=== PATIENT | female | born 1980 | race Caucasian/White ===

== ENCOUNTER 2017-05-01 16:56 | Emergency (ER) | payer BC ==
[2017-05-01] MEDS ORDERED: Amoxicillin 500 MG Cap PO ONE (19:13)
[2017-05-01] MEDS ORDERED: Acetaminophen/oxyCODONE 325-5 MG Tab PO ONE (19:14)
[2017-05-01 22:06] VITALS: BP 135/88
--- NOTE | 2017-05-04 13:52 | ER ---
DATE SEEN: 05/01/2017 HISTORY OF PRESENT ILLNESS: Oren had pain in her right jaw for several days. It got worse today. She has absent top 50% of the crown on the right, #29 tooth. She has moderate pain, and she is worried about this pus pocket below it. She denies fever, shortness of breath, chills, difficulty walking, lightheadedness, or tachycardia. No history of rheumatic fever, heart disease, or cardiac problems. Otherwise, she is healthy. No diabetes, heart disease, high blood pressure, or other serious illnesses. The patient has used prednisone for a foot plantar fasciitis, started 8 days ago. Dermoid cyst noted. She has wisdom teeth removed and has had tooth pain for the last 3 weeks. PAST MEDICAL HISTORY: She has depression, scoliosis, fibromyalgia, and acid reflux. ALLERGIES: Aspirin and peanut. MEDICATIONS: 1. Medroxyprogesterone - Depo-Provera 150 mg q.3 months. 2. Gabapentin 100 mg daily. 3. Amitriptyline 25 mg at bedtime. REVIEW OF SYSTEMS: Negative. PHYSICAL EXAMINATION: VITAL SIGNS: Blood pressure 135/88, heart rate 83, respirations 18, oxygen saturation 100%, and temperature is 98.1. HEENT: The patient has lost 50% of the crown of the tooth #29. There is an amount of epulis - pus collection of fluid below this right root. ASSESSMENT: Infected tooth with periapical abscess. PLAN: Treat with Amoxil 500 mg t.i.d., 30 tablets, and also Percocet prescription. The patient to follow up with dentist next week. At a certain point, it may have to be drained and incised to relieve this pain and pressure she experiences, but currently is not ready for incision and drainage. DIAGNOSIS: Dental periapical abscess, tooth #29. /[id number] MELISSA/BARBARA
== END 2017-05-01 19:35 | disposition home or self-care (01) ==
LOC: FB.ED 16:56
DX: K04.7 Periapical abscess without sinus (principal); Z88.6 Allergy status to analgesic agent; Z91.010 Allergy to peanuts
CPT/HCPCS: 99282; A9270; 99283

== ENCOUNTER 2019-08-31 06:31 | Day surgery (SDC) | payer BC ==
[2019-08-31] MEDS ORDERED: Lidocaine 2% 5 ML SDV IV ONE (06:32)
[2019-08-31] MEDS ORDERED: Midazolam 1 MG/ML 2 ML SDV IV ONE (06:32)
[2019-08-31] MEDS ORDERED: Propofol 200 MG/20 ML SDV IV ONE (06:32)
[2019-08-31] MEDS ORDERED: Lactated Ringers 1,000 ML IV SCH (06:45)
[2019-08-31] MEDS ORDERED: Sodium Chloride 0.9% 10 ML Syringe FLUSH PRN (06:45)
--- NOTE | 2019-08-31 08:18 | PCM.OPNOTE ---
- General Post-Op/Procedure Note Date of Surgery/Procedure: 08/31/19 Operative Procedure(s): egd with bx Findings: gastritis hiatal hernia irregular z line Pre Op Diagnosis: dysphagia Post-Op Diagnosis: gastritis. hiatal hernia. irregular z line Anesthesia Technique: MAC Primary Surgeon: Brian Wade Anesthesia Provider: Oma Rueda Pathology: stomach and esophagus Complications: None Condition: Good Free Text/Narrative:: see dictation
--- NOTE | 2019-08-31 08:33 | PREOP ---
ADMISSION DATE: 08/31/2019 CHIEF COMPLAINT: Dysphagia. HISTORY OF PRESENT ILLNESS: This is a 39-year-old white female who has a known history of hiatal hernia as well as manometry proven motility issues. She has had some trouble with swallowing, basically complains that things feel like they get stuck in her esophagus. She has undergone an esophagram. She does have a history of severe reflux disease and has been offered and accepted an esophagogastroduodenoscopy. MEDICATIONS: 1. Lexapro 20 mg daily. 2. Neurontin 100 mg 2 times a day. 3. Depo-Provera 150 mg intramuscularly every 3 months. 4. Elavil 25 mg 2 tablets at bedtime. 5. Prilosec 20 mg tablets every day. ALLERGIES: She has an allergy to aspirin. PAST MEDICAL HISTORY: Significant for history of drug dependence, insomnia, major depressive disorder, myalgia and myosis, and post-traumatic stress disorder. PAST SURGICAL HISTORY: Significant for esophageal manometry in 2013. REVIEW OF SYSTEMS: CONSTITUTIONAL: Negative. HEENT: Positive for trouble swallowing. RESPIRATORY: Negative. CARDIOVASCULAR: Negative. GI: As above. ALLERGIC: Denies any immune, environmental, or food allergies. NEUROLOGIC: She has had no neurologic issues. PHYSICAL EXAMINATION: GENERAL: This is a well-developed, well-nourished white female, appearing in no acute distress. LUNGS: Clear to auscultation. HEART: Had a regular rate and rhythm. ABDOMEN: Soft, nontender. NEUROLOGIC: She is alert. SKIN: Warm and dry. ASSESSMENT: Dysphagia. PLAN: Esophagogastroduodenoscopy. Risks of procedure explained to the patient to include bleeding, perforation, and infection. The patient expresses understanding and asked us to proceed. /[id number] /MODL
[2019-08-31 09:09] VITALS: BP 118/83; PULSE 92
--- NOTE | 2019-08-31 09:25 | OR ---
DATE OF OPERATION: 08/31/2019 SURGEON: Brian Wade MD PROCEDURE PERFORMED: Esophagogastroduodenoscopy with cold forceps biopsy. PREOPERATIVE DIAGNOSIS: History of dysphagia. POSTOPERATIVE DIAGNOSES: Gastritis, hiatal hernia, and irregular Z-line. INDICATIONS FOR PROCEDURE: This is a 39-year-old white female with longstanding history of gastroesophageal reflux disease, recently has had an exacerbation of her symptoms and she was offered and accepted an esophagogastroduodenoscopy. DESCRIPTION OF OPERATION: After an excellent IV sedation was administered, bite block was inserted, flexible endoscope passed without difficulty down the patient's esophagus into the stomach. Stomach was insufflated. Scope passed through the pylorus, second portion of the duodenum and slowly withdrawn. Following findings were noted. Duodenum was unremarkable. Stomach demonstrates some mild gastritis. Biopsies were taken. Retroflexion of the scope, a hiatal hernia was demonstrated. GE junction measured approximately 37 to 38 cm. There was an irregular Z-line noted. Biopsies were taken proximal to the Z-line to incorporate this irregularity that was highly suggestive of an intestinal metaplasia. Remainder of the esophageal exam was unremarkable. The patient tolerated the procedure well, was taken to recovery room in good condition. /[id number] /MODL
== END 2019-08-31 08:53 | disposition home or self-care (01) ==
LOC: FB.SDS 06:31
PROVIDERS: ATTEND Surgery
DX: K29.50 Unspecified chronic gastritis without bleeding (principal); K44.9 Diaphragmatic hernia without obstruction or gangrene; K21.0 Gastro-esophageal reflux disease with esophagitis; K31.89 Other diseases of stomach and duodenum; Z88.8 Allergy status to other drugs, medicaments and biological substances; Z79.899 Other long term (current) drug therapy; Z98.890 Other specified postprocedural states
CPT/HCPCS: 43239; 81025; 88305; 88313; 88342; J2001; J2250; J2704; J7120